=== PATIENT | male | born 1975 | race Caucasian/White ===

== ENCOUNTER 2023-04-08 21:35 | Emergency (ER) | payer OTHER, SELFPAY ==
[2023-04-08 22:08] VITALS: BP 107/75; PULSE 72; RESP 18; TEMP 37.6; O2SAT 100; BMI 29.5
--- NOTE | 2023-04-08 23:45 | CRLHL7_ITS ---
For Patients: As a result of the Cures Act, medical imaging exams and procedure reports are released immediately into your electronic medical record. You may view this report before your referring provider. If you have questions, please contact your health care provider. INDICATION: Fever, chills, rash all over TECHNIQUE: Chest radiograph 3 views COMPARISON: None FINDINGS: Mediastinum: The mediastinum is normal in appearance. The heart silhouette is normal in size and morphology. Lung: Both lungs are unremarkable in appearance. No sign of pleural effusion seen. No pneumothorax is identified. Bone and Soft tissue: Unremarkable for age. IMPRESSION: 1. No acute cardiopulmonary disease is seen. Dictated by: Edmond Cullen MD @ 04/09/2023 00:04:49 (Electronically Signed)
--- NOTE | 2023-04-08 23:46 | ED.GENADULT ---
HPI - General Adult General Time Seen by Provider: 23:46 Date Seen: 04/08/23 Chief complaint: Allergic Reaction Stated complaint: Possible allergic reaction Time Seen by Provider: 04/08/23 23:37 Source: patient and family Mode of arrival: ambulatory Limitations: no limitations History of Present Illness HPI narrative: 47-year-old male who presents today with a rash as well as some swelling of his right elbow. Rash started this morning about 11:00 a.m., generalized and itchy, got progressively worse. Took Benadryl in the itching is improved. Also noticed some swelling of his right elbow, minimal pain, no known injury. In last couple hours has noticed he has been chilled. Denies runny nose, cough, chest pain, shortness of breath, abdominal pain, nausea, vomiting, diarrhea. Related Data Allergies Allergy/AdvReac Type Severity Reaction Status Date / Time No Known Drug Allergies Allergy Verified 04/08/23 22:15 PFSH PFSH Social History Smoking Status: Never smoker Do you use any of these nicotine containing products: None Second hand tobacco smoke exposure: No How often do you have a drink containing alcohol: monthly or less How many standard drinks containing alcohol do you have on a typical day: 1 or 2 How often do you have six or more drinks on one occasion: Never AUDIT-C Alcohol total score: 1 Non-prescribed substance use: denies use service: No Exam Narrative: Exam Narrative: General: Well-developed and well-nourished, no acute distress Head: Atraumatic and normocephalic Eyes: Pupils are equal reactive, extraocular motions intact, conjunctiva clear ENT: External nose and ears are normal, posterior pharynx without erythema or exudate Neck: No midline cervical tenderness, full spontaneous range of motion the neck, trachea midline, no adenopathy Heart: Tachycardic Lungs: Clear to auscultation bilaterally without wheezes or crackles Abdomen: Soft, nontender, nondistended with active bowel sounds Musculoskeletal: Swelling and warmth of the right olecranon, no pain with passive movement of the right elbow. Swelling and erythema of the left wrist but no pain with passive movement of the wrist Neurologic: Awake, alert, and oriented x3, no gross focal neurologic deficits, cranial nerves intact as tested Psych: Mood and affect are appropriate Skin: Erythematous macules diffusely on the body, more prominent of the chest and upper abdomen, non palpable and nontender Const: Vital Signs, click to edit/add: Vital Signs - 24 hr 04/08/23 22:08 04/09/23 00:13 04/09/23 00:14 Temperature 99.7 F H Pulse Rate 74 75 Pulse Rate [Right Pulse Oximeter] 72 Respiratory Rate 18 Blood Pressure 118/74 Blood Pressure [Ri ght Upper Arm] 107/75 Pulse Oximetry 100 98 98 Oxygen Delivery Me thod Room Air 04/09/23 00:29 04/09/23 00:30 04/09/23 00:31 Temperature 99.7 F H Pulse Rate 77 76 Pulse Rate [Right Pulse Oximeter] Respiratory Rate Blood Pressure 112/71 Blood Pressure [Ri ght Upper Arm] Pulse Oximetry 96 96 Oxygen Delivery Me thod Course Course Hospital Course: Patient seen and examined, prior records are reviewed. Patient presents today with rash that is been going on all day, itchy but improved with Benadryl. No known new contacts but noted some swelling of his right elbow. On exam, this appears to be an olecranon bursitis. No pain with movement of the joint to suggest crystal arthropathy or septic arthritis. Also notes some pain and swelling of the left wrist but again no pain with passive movement and no joint effusion on exam. While in the emergency department, patient has been chilled and on my exam is shivering and has developed a fever. Rash today is likely related to infectious etiology, labs are ordered along with chest x-ray and viral testing. Fluids and Toradol ordered. Reevaluation(s) Time of Reevaluation #1: 01:01 Reevaluation #1: Chest x-ray independently interpreted by me negative for acute findings. Labs independently interpreted by me with normal CBC although slight left shift, basic panel hepatic panel are reassuring. Lactate negative. Viral testing pending. Vancomycin initiated. Doxycycline and Augmentin for home. Close follow-up with primary care in with Orthopedics. Vital Signs Vital signs: Initial Vital Signs Temperature 99.7 F H 04/08/23 22:08 Temperature Source Temporal Artery Scan 04/08/23 22:08 Pulse Rate 72 04/08/23 22:08 Pulse Rhythm Regular 04/08/23 22:08 Respiratory Rate 18 04/08/23 22:08 Blood Pressure 107/75 04/08/23 22:08 Blood Pressure Mean 85 04/08/23 22:08 Blood Pressure Position Sitting 04/08/23 22:08 Pulse Oximetry 100 04/08/23 22:08 Oxygen Delivery Method Room Air 04/08/23 22:08 Vital Signs Temperature 99.7 F H 04/08/23 22:08 Pulse Rate 72 04/08/23 22:08 Respiratory Rate 18 04/08/23 22:08 Blood Pressure 107/75 04/08/23 22:08 Pulse Oximetry 100 04/08/23 22:08 Oxygen Delivery Method Room Air 04/08/23 22:08 Temperature 99.7 F H 04/09/23 00:29 Pulse Rate 76 04/09/23 00:31 Respiratory Rate 18 04/08/23 22:08 Blood Pressure 112/71 04/09/23 00:31 Pulse Oximetry 96 04/09/23 00:31 Oxygen Delivery Method Room Air 04/08/23 22:08 Medical Decision Making Lab Data Labs: Lab Results 04/09/23 Range/Units 00:15 WBC 10.96 (4.50-11.00) K/uL RBC 5.11 (4.30-5.90) m/uL Hgb 14.7 (13.5-17.5) gm/dL Hct 42.5 (37.0-53.0) % MCV 83 (80-100) fL MCH 29 (26-34) pg MCHC 35 (32-36) gm/dL RDW Coeff of Shane 12.0 (11.5-15.5) % Plt Count 190 (140-440) K/uL Neut % (Auto) 80.6 H (42.0-72.0) % Lymph % (Auto) 11.6 L (20-44) % [place] % (Auto) 7.0 (0.0-11.0) % Eos % (Auto) 0.5 (0.0-7.0) % Baso % (Auto) 0.0 (0.0-3.0) % Neut # (Auto) 8.80 H (1.7-7.0) K/uL Lymph # (Auto) 1.30 (0.90-2.90) K/uL [place] # (Auto) 0.80 (0.00-0.90) K/UL Eos # (Auto) 0.05 (0.00-0.50) K/uL Baso # (Auto) 0.00 (0.00-0.30) K/uL Abs Immat Gran (auto) 0.03 (0.00-0.30) K/uL Imm/Tot Granulo (auto) 0.3 % Sodium 139 (135-149) mmol/L Potassium 3.8 (3.6-5.1) mmol/L Chloride 105 (96-114) mmol/L Carbon Dioxide 23 (20-32) mmol/L BUN 22 (5-24) mg/dL Creatinine 1.1 (0.5-1.5) mg/dL Estimated Creat Clear 83.91 Estimated GFR 84 ml/min Glucose 103 (60-115) mg/dL Lactate 0.9 (0.5-1.9) mmol/L Calcium 9.3 (8.4-10.6) mg/dL Total Bilirubin 0.7 (0.1-1.5) mg/dL Direct Bilirubin 0.0 (0.0-0.5) mg/dL AST 32 (12-35) U/L ALT 35 (4-50) U/L Alkaline Phosphatase 51 (40-150) U/L Total Protein 7.8 (6.0-8.3) g/dL Albumin 4.6 (3.3-5.0) g/dL Discharge Plan Discharge Clinical Impression: Olecranon bursitis of right elbow, Urticaria Patient Disposition: Home, Self-Care Condition: Stable Instructions: Urticaria (ED), Elbow Bursitis (ED) Additional Instructions: Take antibiotics as prescribed. Rest the elbow, Tylenol and ibuprofen as needed. Ice packs 15-20 minutes time every 2-3 hours while awake for the next 24 hours Take Benadryl as needed for itching Follow-up with orthopedic clinic in 2-3 days and with her primary care doctor this week as well Activity Level: Activity as Tolerated Discharge Diet: Regular Stand Alone Forms: [facility] Info Instructions
[2023-04-09] VITALS (10 sets, daily range): BP systolic 106–118; BP diastolic 62–74; PULSE 71–82; RESP 16–18; TEMP 36.9–37.6; O2SAT 94–98
[2023-04-09] MEDS: 0.9 % SODIUM CHLORIDE 1000 ml 1,000 ML IV (00:15)
[2023-04-09] MEDS: KETOROLAC 15 MG/ML inj IVP (00:15)
--- NOTE | 2023-04-09 00:35 | ED.NURSE ---
Edema noted to left wrist/forearm area and fingers, and right elbow. Hive appearing rash noted on face, head, arms, and trunk. Legs not visualized at this time, pt under blankets due to chills. Pt connected to monitors. Will continue to monitor and assess.
[2023-04-09 00:39] LABS: Eosinophils Absolute Auto 0.05 K/uL (0.00-0.50); Eosinophils Percent Auto 0.5 % (0.0-7.0); Hematocrit 42.5 % (37.0-53.0); Hemoglobin* 14.7 gm/dL (13.5-17.5); Immature Granulocytes Abs Auto 0.03 K/uL (0.00-0.30); Immature Granulocytes Pct Auto 0.3 %; Lymphocytes Percent Auto 11.6 % (20-44); Mean Corpuscular HGB Conc 35 gm/dL (32-36); Mean Corpuscular Hemoglobin 29 pg (26-34); Mean Corpuscular Volume 83 fL (80-100); Neutrophils Percent Auto 80.6 % (42.0-72.0); Platelet Count* 190 K/uL (140-440); Red Blood Count 5.11 m/uL (4.30-5.90); White Blood Count* 10.96 K/uL (4.50-11.00)
[2023-04-09 00:40] LABS: Lactate* 0.9 mmol/L (0.5-1.9)
[2023-04-09 00:45] LABS: Slide Review Reflex No
[2023-04-09 00:54] LABS: Albumin* 4.6 g/dL (3.3-5.0); Chloride* 105 mmol/L (96-114); Potassium* 3.8 mmol/L (3.6-5.1); Sodium* 139 mmol/L (135-149)
[2023-04-09 00:57] LABS: Alkaline Phosphatase* 51 U/L (40-150); Aspartate Amino Transferase* 32 U/L (12-35); Bilirubin Total* 0.7 mg/dL (0.1-1.5); Blood Urea Nitrogen* 22 mg/dL (5-24); Carbon Dioxide* 23 mmol/L (20-32); Creatinine* 1.1 mg/dL (0.5-1.5); Est. Creatinine Clearance* 83.91; Estimated Glomerular Filt Rate 84 ml/min; Glucose* 103 mg/dL (60-115); Total Protein* 7.8 g/dL (6.0-8.3)
[2023-04-09 00:58] LABS: Alanine Aminotransferase* 35 U/L (4-50); Calcium* 9.3 mg/dL (8.4-10.6)
[2023-04-09] MEDS: dexAMETHasone 10 MG/ML inj IVP (01:10)
[2023-04-09 01:18] LABS: PCR FLU A Negative PCR FLU A (Negative); PCR FLU B Negative PCR FLU B (Negative); PCR RSV Negative PCR RSV (Negative)
[2023-04-09 01:21] LABS: SARS PCR* Negative SARS-CoV-2 (Negative)
== END 2023-04-09 03:26 | disposition home or self-care (01) ==
PROVIDERS: Emergency Provider Family Medicine
DX: M70.21 Olecranon bursitis, right elbow (principal); L50.9 Urticaria, unspecified
CPT/HCPCS: 36415; 71046; 80048; 80076; 83605; 85025; 87040; 87631; 96361; 96365; 96375; 99284; J1100; J1885; J3370; J7030; J7120

== ENCOUNTER 2025-02-07 13:17 | Emergency (ER) | payer OTHER, SELFPAY ==
--- OUTSIDE RECORDS SUMMARY | 2025-02-07 13:19 | XMS_ITS | Encounter Summary ---
Author Organization [facility] Address [address] [place] [address]. [place] [address] Care Team Providers Care Hospice Bereavement Coordinator Name Role Phone Daniel Ernst MD Primary Care Provider [phone] Durga Grove DO Unavailable [phone] Encounter Details Date Type Department Care Team (Late st Contact Info) Description 04/10/2024 MyC Medical Advice [facility] [address] [place] [address] Maryam Roberson Social History Tobacco Use Types Packs/Day Years Used Date Smoking Tobacco: Never Smokeless Tobacco: Never Alcohol Use Standard Drinks/Week Comments Yes 0 (1 standard drink = 0.6 oz pur e alcohol) socially Social Connection and Isolation Panel [NHANES] A nswer Date Recorded Frequency of Communication with Friends and Fami ly Not on file 03/24/2024 How often do you get together with friends or re latives? Once a week 03/24/2024 Attends [employer] Not on file 03/24 Active Member of Clubs or Organizations Not on f ile 03/24/2024 Attends Club or Organization Meetings Not on ean e 03/24/2024 Marital Status Not on file 03/24/2024 AUDIT-C Answer Date Recorded Q1: How often do you have a drink containing alc ohol? 2-3 times a week 01/31/2021 Q2: How many drinks containi ng alcohol do you have on a typical day when you are drinking? 1 or 2 01/31/2021 Q3: How often do you have si x or more drinks on one occasion? Not asked 01/31/2021 PHQ-2 Answer Date Recorded PHQ-2 Score 0 03/24/2024 [facility] - Occupational Stress Questionnaire Answer Date Recorded Do you feel stress - tense, restless, nervous, or anxious, or unable to sleep at night because your mind is troubled all the time - these days? Only a little 03/24/2024 Exercise Vital Sign Answer Date Recorde d On average, how many days pe r week do you engage in moderate to strenuous exercise (like a brisk walk)? 2 days 03/24/2024 On average, how many minutes do you engage in exercise at this level? 60 min 03/24/2024 Adolescent Education Answer Date Record ed Getting School Help Needed Not on file 06/16 Food Insecurity Answer Date Recorded Within the past 12 months, d id you worry that your food would run out before you got money to buy more? No 03/24/2024 Within the past 12 months, d id the food you bought just not last and you didn t have money to get more? No 03/24/2024 Housing Stability Answer Date Recorded Do you have housing? (Housin g is defined as stable permanent housing and does not include staying outside in a car, in a tent, in an abandoned building, in an overnight senior living, or couch-surfing.) Yes 03/24/2024 Are you worried about losing your housing? No 03/24/2024 Financial Resource Strain Answer Date R ecorded Within the past 12 months, h ave you or your family members you live with been unable to get utilities (heat, electricity) when it was really needed? Yes 03/24/2024 Transportation Needs Answer Date Record ed Within the past 12 months, h as lack of transportation kept you from medical appointments, getting your medicines, non-medical meetings or appointments, work, or from getting things that you need? No 03/24/2024 Interpersonal Safety Answer Date Record ed Do you feel physically and e motionally safe where you currently live? Yes 03/24/2024 Within the past 12 months, h ave you been hit, slapped, kicked or otherwise physically hurt by someone? No 03/24/2024 Within the past 12 months, h ave you been humiliated or emotionally abused in other ways by your partner or ex-partner? No 03/24/2024 Sex and Gender Information Value Date Recorded Sex Assigned at Male 09/12/2022 10:55 AM FENDER REPAIRER Legal Sex Male 3:11 AM FENDER REPAIRER Gender Identity Male 09/12/2022 10:55 AM FENDER REPAIRER Sexual Orientation Straight 09/12/2022 10 :55 AM FENDER REPAIRER documented as of this encounter Plan of Treatment Not on file documented as of this encounter Visit Diagnoses Not on filedocumented in this encounter Care Teams Hospice Bereavement Coordinator Relationship Specialty [place] [address] [place] [address] PCP - General Family Practice 03/25/17 [place] [address] [place] [id number] Assigned PCP 04/24/24 documented as of this encounter
--- OUTSIDE RECORDS SUMMARY | 2025-02-07 13:19 | XMS_ITS | Encounter Summary ---
Author Organization [facility] Address [address] [place] [address]. [place] [address] Care Team Providers Care Electroless Plater Name Role Phone Daniel Ernst MD Primary Care Provider [phone] Durga Foster MD Primary Care Provider Daniel Ernst MD Primary Care Provider Daniel Ernst MD Unavailable Kamlesh Dunham MD Unavailable [phone] Kamlesh Dunham MD Unavailable [phone] Daniel Ernst MD Unavailable [facility] Unavail able Durga Grove DO Unavailable Reason for Visit * Reason Onset Date Comments MyChart Communication 05/22/2011 sinus Encounter Details Date Type Department Care Team (Latest Contact Info) Description 05/22/2011 MyC Medical Advice [facility] [id number] [place] [id number] Daniel Ernst [place] [id number] [place] [id number] MyChart Communication (sinus) Social History Tobacco Use Types Packs/Day Years Used Date Smoking Tobacco: Never Alcohol Use Standard Drinks/Week Comments No 0 (1 standard drink = 0.6 oz pur e alcohol) Sex and Gender Information Value Date Recorded Sex Assigned at Male 09/12/2022 10:55 AM INFORMATION ARCHITECT Legal Sex Male 3:11 AM INFORMATION ARCHITECT Gender Identity Male 09/12/2022 10:55 AM INFORMATION ARCHITECT Sexual Orientation Straight 09/12/2022 10 :55 AM INFORMATION ARCHITECT documented as of this encounter Plan of Treatment Not on file documented as of this encounter Visit Diagnoses Not on filedocumented in this encounter Care Teams Electroless Plater Relationship Specialty [place] [address] [place] [address] PCP - General 07/27/09 02/12/16 [place] [address] [place] [address] PCP - General Family Practice 02/13/16 03/24/17 [place] [address] [place] [address] PCP - General Family Practice 03/25/17 [place] [address] [place] [address] PCP - Assigned PCP 09/15/17 09/13/18 [place] [address] [place] [address] PCP - Assigned PCP 09/14/18 11/04/18 [place] [address] [place] [address] Assigned PCP 09/14/18 01/17/19 [place] [address] [place] [address] Assigned PCP 01/18/19 06/08/22 [facility] [id number] [place] [address] [place] [address] Assigned PCP 09/26/23 03/23/24 Durga Grove DO [address] [place] [id number] Assigned PCP 04/24/24 documented as of this encounter
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
[2025-02-07 13:23] VITALS: BP 130/76; PULSE 80; RESP 20; TEMP 36.8; O2SAT 98; BMI 29.8
--- NOTE | 2025-02-07 14:06 | ED.GENADULT ---
HPI - General Adult General Chief complaint: Laceration/Wound Stated complaint: L index finger cut Time Seen by Provider: 02/07/25 13:19 History of Present Illness HPI narrative: Patient is a 49-year-old gentleman who injured his left index finger with a chainsaw. He has a minor skin tear versus abrasion on the posterior surface of the 2nd digit proximal to the PIP. He has full range of motion of the hand. No bony abnormalities. The wound occurred just prior to arrival. No other related symptoms. Patient has not had a recent tetanus shot. Related Data Home Medications ?Medication ?Instructions ?Recorded ?Confirmed No Known Home Medications 02/07/25 02/07/25 Allergies Allergy/AdvReac Type Severity Reaction Status Date / Time No Known Drug Allergies Allergy Verified 02/07/25 13:22 Review of Systems Status of ROS: Reports: 10 or more systems reviewed and unremarkable except as noted in History and below [facility] Social History Smoking Status: Never smoker Do you use any of these nicotine containing products: None Second hand tobacco smoke exposure: No How often do you have a drink containing alcohol: monthly or less How many standard drinks containing alcohol do you have on a typical day: 1 or 2 How often do you have six or more drinks on one occasion: Never AUDIT-C Alcohol total score: 1 Non-prescribed substance use: denies use service: No Exam Narrative: Exam Narrative: EXAM GENERAL: Patient appears comfortable and well. EYES: No scleral icterus. LYMPH: No supraclavicular or cervical lymphadenopathy. SKIN: Skin tear noted proximally the 2.5 cm posterior 2nd digit as noted above. EXT: No dependent lower extremity pedal edema. HEART: Regular rate and rhythm with no murmurs, rubs, or gallops. LUNGS: Clear to auscultation bilaterally with no crackles or wheezes. ABD: Soft, non tender, non distended. PSYCH: Good eye contact, speech is not pressured. Const: Vital Signs, click to edit/add: Vital Signs - 24 hr 02/07/25 13:23 Temperature 98.2 F Pulse Rate [Pulse Oximeter] 80 Respiratory Rate 20 Blood Pressure [Ri ght Upper Arm] 130/76 Pulse Oximetry 98 Oxygen Delivery Me thod Room Air Course Course ED Course: After explaining the procedure I did sterilely irrigate the wound. I then closed the defect with a Dermabond. He is instructed on wound care. We will be placing him on Augmentin for the next week. This tetanus shot was updated. Vital Signs Vital signs: Initial Vital Signs Temperature 98.2 F 02/07/25 13:23 Temperature Source Temporal Artery Scan 02/07/25 13:23 Pulse Rate 80 02/07/25 13:23 Respiratory Rate 20 02/07/25 13:23 Blood Pressure 130/76 02/07/25 13:23 Blood Pressure Mean 94 02/07/25 13:23 Pulse Oximetry 98 02/07/25 13:23 Oxygen Delivery Method Room Air 02/07/25 13:23 Vital Signs Temperature 98.2 F 02/07/25 13:23 Pulse Rate 80 02/07/25 13:23 Respiratory Rate 20 02/07/25 13:23 Blood Pressure 130/76 02/07/25 13:23 Pulse Oximetry 98 02/07/25 13:23 Oxygen Delivery Method Room Air 02/07/25 13:23 Temperature 98.2 F 02/07/25 13:23 Pulse Rate 80 02/07/25 13:23 Respiratory Rate 20 02/07/25 13:23 Blood Pressure 130/76 02/07/25 13:23 Pulse Oximetry 98 02/07/25 13:23 Oxygen Delivery Method Room Air 02/07/25 13:23 Discharge Plan Discharge Clinical Impression: Laceration Patient Disposition: Home, Self-Care Condition: Stable Instructions: Laceration (ED) Additional Instructions: Keep wound clean and dry. Augmentin as directed Follow-up as needed. Activity Level: No Restrictions Discharge Diet: Regular Prescriptions: No Action No Known Home Medications Follow Up/Referrals: Provider,Not a Local [Primary Care Provider, Family Practice] Stand Alone Forms: MyHealth Info Instructions
[2025-02-07] MEDS: TETANUS/DIPHTH/PERTUSSIS 0.5 ML SYRINGE IM (14:17)
== END 2025-02-07 14:32 | disposition home or self-care (01) ==
PROVIDERS: Emergency Provider Internal Medicine
DX: S61.211A Laceration without foreign body of left index finger without damage to nail, initial encounter (principal); W29.3XXA Contact with powered garden and outdoor hand tools and machinery, initial encounter; Z23 Encounter for immunization
CPT/HCPCS: 12001; 90471; 90715; 99282; 99283